=== PATIENT | male | born 1935 | race Caucasian/White ===

== ENCOUNTER 2019-07-23 10:38 | Emergency (ER) | payer MEDICARE ==
--- NOTE | 2019-07-23 10:45 | ERPHSYRPT ---
- History of Present Illness Time Seen by Provider: 07/23/19 10:45 Source: patient, family Exam Limitations: no limitations Physician History: This is an 83-year-old male has some history of dementia and fell this morning. His was unable to lift him up. Patient is diabetic he is on Plavix and has hypertension. Patient has had a head bleed after a fall in the past. Patient was confused earlier but per his daughters report he is at his baseline on arrival into the emergency department. Patient complains of head pain, pain is his chin, right thigh/hip pain and left foot pain. Family is concerned the patient might have a urinary tract infection. Patient has no urinary complaints at this time. Occurred: this morning Injuries/Pain Location: head, face, lower extremity Loss of Consciousness: no loss of consciousness Quality: aching Severity of Pain-Max: mild Severity of Pain-Current: mild Modifying Factors: Improves With: movement Associated Symptoms (Fall): confusion (Now resolved), extremity injury Allergies/Adverse Reactions: No Known Allergies Allergy (Verified 03/19/15 03:05) Home Medications: Atorvastatin Calcium [Lipitor 20MG Tablet] 20 mg PO HS 03/18/15 [History] Clopidogrel Bisulfate 75 mg [PLAVIX 75 MG Tablet] 0.5 tab PO DAILY [History] Losartan Potassium 50 mg [Cozaar 50 MG] 50 mg PO BID 03/18/15 [History] Tamsulosin HCl 0.4 mg [Flomax 0.4 MG] 0.4 mg PO HS 03/18/15 [History] Gabapentin [Neurontin] 600 mg PO DAILY 07/23/19 [History] Metformin HCl [Glucophage Xr] 500 mg PO DAILY 07/23/19 [History] - Review of Systems Constitutional: No Symptoms Eyes: No Symptoms Ears, Nose, & Throat: No Symptoms Respiratory: No Symptoms Cardiac: No Symptoms Abdominal/Gastrointestinal: No Symptoms Genitourinary Symptoms: No Symptoms Musculoskeletal: Injury (Right hip and thigh left foot) Skin: No Symptoms Neurological: No Symptoms Psychological: No Symptoms Endocrine: No Symptoms Hematologic/Lymphatic: No Symptoms Immunological/Allergic: No Symptoms All Other Systems: Reviewed and Negative - Past Medical History Pertinent Past Medical History: Yes Neurological History: Other ENT History: No Pertinent History Cardiac History: Coronary Artery Disease, Hypertension, Myocardial Infarction ( [place]) Respiratory History: No Pertinent History Endocrine Medical History: No Pertinent History Musculoskeletal History: No Pertinent History GI Medical History: No Pertinent History History: No Pertinent History Psycho-Social History: No Pertinent History Male Reproductive Disorders: Prostate Cancer Other Medical History: giant cell arteritis - Past Surgical History Past Surgical History: Yes Neuro Surgical History: No Pertinent History Cardiac: CABG, Cardiac Stent Respiratory: No Pertinent History Gastrointestinal: Cholecystectomy Genitourinary: No Pertinent History Musculoskeletal: Orthopedic Surgery Male Surgical History: Vasectomy Other Surgical History: T&A, carotid artery - Social History Smoking Status: Former smoker Exposure to second hand smoke: No Drug Use: none - Nursing Vital Signs Nursing Vital Signs: Initial Vital Signs Temperature 98.0 F 07/23/19 10:45 Pulse Rate 68 07/23/19 10:45 Respiratory Rate 20 07/23/19 10:45 Blood Pressure 141/80 07/23/19 10:45 O2 Sat by Pulse Oximetry 95 07/23/19 10:45 Pain Scale Pain Intensity 0 - Keegan Coma Score Best Eye Response (Keegan): (4) open spontaneously Best Verbal Response (Keegan): (5) oriented Best Motor Response (Keegan): (6) obeys commands [place] Total: 15 - Physical Exam General Appearance: no apparent distress, alert, anxiety Head Injury: ecchymosis (Chin), tenderness Eye Exam: PERRL/EOMI, eyes nml inspection ENT Exam: airway nml Neck Exam: supple, trachea midline, full range of motion, normal alignment, normal inspection Respiratory/Chest Exam: normal breath sounds, No chest tenderness, No respiratory distress Cardiovascular Exam: normal heart sounds, regular rate/rhythm, murmur, normal peripheral pulses Gastrointestinal Exam: soft, normal bowel sounds, No tenderness Rectal Exam: not done Back Exam: normal inspection, normal range of motion, No CVA tenderness, No vertebral tenderness Extremity Exam: normal range of motion, pelvis stable, swelling, tenderness, other (Ecchymosis of digits 2,3,4 of left foot) - Course Nursing assessment & vital signs reviewed: Yes Ordered Tests: Active Orders 24 hr Category Date Time Status FACIAL BONES WO CONTRAST [CT] Stat Exams 07/23/19 11:10 Completed FEMUR Stat Exams 07/23/19 11:12 Completed FOOT (MINIMUM 3 VIEWS) Stat Exams 07/23/19 11:12 Completed HEAD WITHOUT CONTRAST [CT] Stat Exams 07/23/19 11:10 Completed HIP UNI (2V) INCL PEL IF DONE Stat Exams 07/23/19 11:12 Completed UA W/RFX UR CULTURE Stat Lab 07/23/19 13:25 Completed Lab/Rad Data: Laboratory Results 07/23/19 Range/Units 13:25 Urine Color YELLOW (YELLOW) Urine Appearance CLEAR (CLEAR) Urine pH 5.0 (5-6) Ur Specific Brut[place] 1.008 (1.005-1.025) Urine Protein NEGATIVE (Negative) Urine Ketones NEGATIVE (NEGATIVE) Urine Blood SMALL (0-5) Tigre/ul Urine Nitrite NEGATIVE (NEGATIVE) Urine Bilirubin NEGATIVE (NEGATIVE) Urine Urobilinogen NEGATIVE (0-1) mg/dL Ur Leukocyte Esterase NEGATIVE (NEGATIVE) Urine WBC (Auto) NONE (0-5) /HPF Urine RBC (Auto) NONE (0-2) /HPF U Epithel Cells (Auto) NONE (FEW) /HPF Urine Bacteria (Auto) NONE (NEGATIVE) /HPF Urine Mucus (Auto) SLIGHT (NEGATIVE) /HPF Urine Culture Reflexed NO (NO) Urine Glucose NEGATIVE (NEGATIVE) mg/dL - Progress Progress: unchanged, re-examined Progress Note: 07/23/19 14:27 CAT scan of the head and face reveal no acute processes. X-ray of the right hip and pelvis reveal no acute fractures present. There are chronic degenerative changes present. The right femur shows no acute fracture or dislocation. The left foot x-ray shows no acute fractures or dislocations present. I reviewed the patient's x-ray findings with the patient's daughter. The patient's urinalysis does not show any evidence of dehydration or urinary tract infection. The daughter does not want an IV line placed. The daughter does not want viral swabs performed. Patient's daughter stated that she is happy with the care and will take the patient to his primary care doctor tomorrow. She was mainly concerned about a fracture or a head bleed. Counseled pt/family regarding: diagnosis, need for follow-up, rad results - Departure Departure Disposition: Home Clinical Impression: Fall, Contusion Condition: Stable Critical Care Time: No Referrals: CARLOS ALBERTO CLEMENTE MD [Primary Care Provider] - Additional Instructions: Follow-up with Dr. Clemente tomorrow in his office. Call to make an appointment.
--- NOTE | 2019-07-23 12:04 | XRAY ---
Indication: Pain following fall. Multiple contiguous axial images obtained through the head without contrast. Comparison: March 18, 2015. Again age-appropriate global atrophy, mild periventricular degenerative micro-ischemia bilaterally and 3rd/lateral ventriculomegaly. Also stable left posterior fossa paramedian small arachnoid cyst versus focal encephalomalacia. No acute intracranial hemorrhage, abnormal extra-axial fluid collection, or mass effect. Bony calvarium intact. Visualized paranasal sinuses and mastoid air cells are clear. Impression: 1. Stable atrophy, degenerative micro-ischemia, noncommunicating type hydrocephalus, and left posterior fossa arachnoid cyst versus old infarct. 2. No new or acute intracranial abnormalities.
--- NOTE | 2019-07-23 12:07 | XRAY ---
Indication: Chin contusion following fall. Multiple contiguous axial images obtained through the facial bones. Sagittal and coronal reformatted images obtained. Comparison: None A few bilateral dental amalgams produces beam artifact limiting these levels. No acute fracture, suspicious bony lesions, or radiopaque foreign body. Orbits including roof, jackson, and floors are intact. Mild mucosal thickening of both ethmoid and lesser degree both frontal sinuses without fluid leveling. Remaining paranasal sinuses and nasal passages are clear. Moderate carotid calcifications bilaterally. Remaining visualized noncontrasted soft tissues unremarkable. Mild/moderate multilevel cervical degenerative spondylosis. Impression: 1. Paranasal sinus disease as detailed. 2. Remaining CT facial bones negative.
[2019-07-23 12:14] VITALS: BP 121/80
--- NOTE | 2019-07-23 13:16 | XRAY ---
Indication: Pain following fall. Comparison: None AP pelvis and 2 views of the right hip demonstrates mild bilateral degenerative chondrocalcinosis, moderate lower lumbar degenerative spondylosis, and moderate scattered vascular calcifications bilaterally. No other bony, articular, or soft tissue abnormalities.
--- NOTE | 2019-07-23 13:18 | XRAY ---
Indication: Pain following fall. Comparison: None 3 nonweightbearing views of the left foot demonstrates small plantar heel spur, plantar aponeurosis calcifications from old injury/inflammation, and scattered vascular calcifications. No other bony, articular, or soft tissue abnormalities.
--- NOTE | 2019-07-23 13:18 | XRAY ---
Indication: Pain following fall. Comparison: None 2 views of the right femur demonstrates mild hip degenerative chondrocalcinosis and moderate scattered vascular calcifications. No other bony, articular, or soft tissue abnormalities.
[2019-07-23 13:39] LABS: Appearance CLEAR (CLEAR); Bilirubin NEGATIVE (NEGATIVE); Blood SMALL Ery/ul (0-5); Glucose NEGATIVE (NEGATIVE); Ketones NEGATIVE (NEGATIVE); Leukocyte Esterase NEGATIVE (NEGATIVE); Mucus SLIGHT /HPF (NEGATIVE); Nitrite NEGATIVE (NEGATIVE); Protein,Urine Dip NEGATIVE (Negative); Specific Gravity 1.008 (1.005-1.025); Urobilinogen NEGATIVE mg/dL (0-1)
[2019-07-23 14:20] VITALS: PULSE 80; O2SAT 93
== END 2019-07-23 14:36 | disposition home or self-care (01) ==
LOC: ED 10:38
DX: S00.93XA Contusion of unspecified part of head, initial encounter (principal); S70.11XA Contusion of right thigh, initial encounter; S90.32XA Contusion of left foot, initial encounter; W19.XXXA Unspecified fall, initial encounter; R51 Headache; M79.651 Pain in right thigh; M79.672 Pain in left foot; Z79.899 Other long term (current) drug therapy; I10 Essential (primary) hypertension; I25.10 Atherosclerotic heart disease of native coronary artery without angina pectoris; I25.2 Old myocardial infarction; Z98.61 Coronary angioplasty status; Z95.1 Presence of aortocoronary bypass graft
CPT/HCPCS: 70450; 70486; 73502; 73552; 73630; 81001; 99284